=== PATIENT | female | born 1980 | race Hispanic/Latino ===

== ENCOUNTER 2016-04-06 02:35 | Emergency (ER) | payer OTHER, SELFPAY ==
[2016-04-06] MEDS ORDERED: Famotidine/PF 20 mg/2ml Vial ONE (02:51)
[2016-04-06] MEDS ORDERED: Ketorolac Tromethamine 30 MG/ML VIAL ONE (02:51)
[2016-04-06] MEDS ORDERED: Ondansetron HCl/PF 4 MG/2 ML Vial ONE (02:51)
[2016-04-06 03:02] LABS: #Basophils 0.1 thou/uL (0.0-0.2); #Eosinphils 0.6 thou/uL (0.0-0.7); #Lymphocytes 2.6 thou/uL (1.20-3.40); #Monocytes 0.5 thou/uL (0.11-0.59); #Neutrophils 4.5 thou/uL (1.40-6.50); %Basophils 0.6 % (0.0-1.0); %Lymphocytes 31.9 % (21.0-51.0); %Monocytes 5.9 % (0.0-10.0); Hematocrit 48.6 % (36.0-47.0); Mean Platelet Volume 11.4 fL (7.4-10.4); Red Blood Cell (RBC) Count 5.36 mill/uL (4.20-5.40); White Blood Cell (WBC) Count 8.2 thou/uL (4.8-10.8)
[2016-04-06 03:21] LABS: Amylase 151 U/L (25-125); Anion Gap 14 mmol/L (10-20); BUN (Urea Nitrogen) 14 mg/dL (7.0-18.7); Calc. Creatinine Clearance 0 mL/min (70-130); Calcium 9.5 mg/dL (7.8-10.44); Carbon Dioxide 26 mmol/L (22-29); Chloride 102 mmol/L (98-107); Estimated GFR-MDRD 71
[2016-04-06 03:30] LABS: Troponin I Less than 0.010 ng/mL (< 0.028)
[2016-04-06] MEDS ORDERED: Sodium Chloride 0.9% 1,000 ML ONE (03:32)
[2016-04-06 05:00] LABS: Nitrite Negative (Negative)
[2016-04-06 05:01] LABS: Bilirubin Negative (Negative); Blood, Urine Negative (Negative); Glucose, Urine (Dipstick) Negative (Negative); Ketone, Urine Negative (Negative); Protein, Urine (Dipstick) Negative (Neg-Trace); Urobilinogen 0.2 mg/dL (0.2-1.0)
[2016-04-06 05:06] LABS: Bacteria/HPF None Seen HPF (None Seen); RBC/HPF None Seen HPF (0-3); WBC/HPF None Seen HPF (0-3)
--- NOTE | 2016-04-06 06:34 | ERRECORD ---
[facility] EMERGENCY RECORD HPI ABDOMINAL PAIN (02:59 RWAG) CHIEF COMPLAINTS: Patient presents for evaluation of abdominal pain. HISTORIAN: History provided by patient. LOCATION FEMALE: Symptoms are localized, most severe in the right upper quadrant, most severe in the epigastric. QUALITY: Unable to describe the quality of the pain. SEVERITY: Maximum severity of symptoms mild, Currently symptoms are mild, Maximum severity of pain rated as 8/10, Current severity of pain rated as 8/10. TIME COURSE: Patient unable to describe onset of symptoms. ASSOCIATED WITH FEMALE: No associated symptoms. RELIEVED BY: Patient's condition relieved by nothing. EXACERBATED BY: Patient's condition exacerbated by nothing. ROS (03:00 RWAG) CONSTITUTIONAL: Negative constitutional review of systems. EYES: Negative eye review of systems. ENT: Negative ears, nose, throat review of systems. CARDIOVASCULAR: Negative cardiovascular review of systems. RESPIRATORY: Negative respiratory review of systems. GI: Historian reports abdominal pain, reports nausea, reports vomiting. GENITOURINARY FEMALE: Negative genitourinary review of systems. MUSCULOSKELETAL: Negative musculoskeletal review of systems. SKIN: Negative skin review of systems. NEUROLOGIC: Negative neurologic review of systems. ENDOCRINE: Negative endocrine review of systems. HEMO/LYMPHATIC: Normal hematologic/lymphatic system review. ALLERGIC/IMMUNOLOGIC: Normal allergy/immunologic system review. PSYCHIATRIC: Negative psychiatric review of systems. NOTES: All systems reviewed, negative except as described above. PAST MEDICAL HISTORY (03:25 BHAS) MEDICAL HISTORY: Flu vaccine not up to date, Tetanus not up to date, Past medical history includes endocrine disease, hypothyroidism, Past medical history includes hematological history, Anemia. Reviewed 04/06/15. FEMALE SURGICAL HISTORY: Patient has no surgical history. Reviewed 04/06/15. SOCIAL HISTORY: Patient denies alcohol use, Patient denies drug use, Patient has no smoking history. KNOWN ALLERGIES No Known Allergies (Unconfirmed) No Known Drug Allergies CURRENT MEDICATIONS (03:29 BHAS) None &a-1R&a+25V*p+0X*p3450C*c202B*c15G*c2P*p-0X&a-25V&a+1R Name: Alessia Wang : 1980 F36 MedRec: [id number] AcctNum: [id number] Prepared: Kristin Apr 06, 2016 06:38 by Interface Page 1 of 3 pMD [facility] EMERGENCY RECORD VITAL SIGNS VITAL SIGNS: Resp: 18, Pain: 8, Time: 04/06/2016 02:39. (02:39 BHAS) BP: 123/74, Pulse: 66, Temp: 97.6 (Oral), O2 sat: 99 on Room Air, Time: 04/06/2016 02:40. (02:40 BHAS) BP: 94/51, Pulse: 47, Resp: 18 (Non-Labored), O2 sat: 97 on Room Air, Time: 04/06/2016 03:35. (03:35 BHAS) BP: 122/67, Pulse: 57, Resp: 18 (Non-Labored), Pain: 2, O2 sat: 98 on Room Air, Time: 04/06/2016 04:55. (04:55 BHAS) BP: 109/68, Pulse: 63, Resp: 18 (Non-Labored), Temp: 98.1 (Oral), Pain: 0, O2 sat: 99 on Room Air, Time: 04/06/2016 06:00. (06:00 BHAS) PHYSICAL EXAM (03:00 RWAG) CONSTITUTIONAL: Vital Signs Reviewed. HEAD: Head exam normal. EYES: Eye exam normal. ENT: ENT exam normal. NECK: Neck exam normal. RESPIRATORY CHEST: Respiratory and chest exam normal. CARDIOVASCULAR: Cardiovascular assessment normal. ABDOMEN FEMALE: Abdominal exam included findings of abdomen tender, to the right upper quadrant, mild intensity, Bowel sounds normal. BACK: Back exam normal. UPPER EXTREMITY: Upper extremity exam normal. LOWER EXTREMITY: Lower extremity exam normal. NEURO: Neuro exam normal. SKIN: Skin exam normal. LYMPHATIC: Lymphatic exam normal. PSYCHIATRIC: Psychiatric exam normal. EKG INTERPRETATION (03:01 RWAG) 12 LEAD EKG INTERPRETATION: 12 lead EKG interpreted by Emergency Department Physician at time of study, 12 lead EKG shows normal sinus rhythm, Rate (beats per minute): 58, No previous EKG available for comparison, T waves, inverted, Leads affected: V2, Leads affected: V3, [place] normal, Clinical impression: Normal EKG. RADIOLOGYINTERPRETATION (06:02 RWAG) ABDOMEN: Abdomen/pelvis CT scan, with contrast negative, no abdominal aortic aneurysm, no appendicitis, no diverticulitis, no kidney stones, no injuries, no mass, no obstruction, no free air, no hydronephrosis. MEDICATION ADMINISTRATION SUMMARY Drug Name: *sodium chloride 0.9 % intravenous, Dose Ordered: 1000 mL, Route: IV Fluid Infusion, Status: Given, Time: 03:40 04/06/2016, &a-1R&a+25V*p+0X*o3985C*c202B*c15G*c2P*p-0X&a-25V&a+1R Name: Alessia Wang : 1980 F36 MedRec: [id number] AcctNum: [id number] Prepared: Kristin Apr 06, 2016 06:38 by Interface Page 2 of 3 pMD [facility] EMERGENCY RECORD Drug Name: Dilaudid (PF), Dose Ordered: 1 mg, Route: IV Push, Status: Given, Time: 03:10 04/06/2016, Drug Name: famotidine (PF), Dose Ordered: 20 mg, Route: IV Push, Status: Given, Time: 03:05 04/06/2016, Drug Name: ketorolac injection, Dose Ordered: 30 mg, Route: IV Push, Status: Given, Time: 03:04 04/06/2016, Drug Name: ondansetron HCl intravenous, Dose Ordered: 8 mg, Route: IV Push, Status: Given, Time: 02:55 04/06/2016, *Additional information available in notes, Detailed record available in Medication Service section. PROBLEM LIST No recorded problems DIAGNOSIS (06:07 ) FINAL: PRIMARY: GERD WITH ESOPHAGITIS. PRESCRIPTION Ultram: TABLET : 50 mg : ORAL : Quantity: 2 Unit: tab(s) Route: ORAL Schedule: every 6 hours PRN Dispense: 20 Unit: tab(s) May substitute. Refills: No Refills . (06:05 RW) NOTES: No Refills. (06:05 ) Pepcid AC: TABLET : 20 mg : ORAL : Quantity: 1 Unit: tab(s) Route: ORAL Schedule: once a day (in the morning) Dispense: 30 Unit: tab(s) May substitute. Refills: No Refills . (06:06 [facility]) NOTES: No Refills. (06:06 [facility]) Zofran ODT: TABLET,DISINTEGRATING : 8 mg : ORAL : Quantity: 1 Unit: tab(s) Route: ORAL Schedule: every 8 hours PRN Dispense: 10 Unit: tab(s) May substitute. Refills: No Refills . (06:07 [facility]) NOTES: No Refills. (06: [facility]) DISPOSITION PATIENT: Disposition Type: Discharge, Disposition: *Discharge Home, Disposition Transport: Car, Condition: Improved. (06: [facility]) Patient left the department. (06:29 [facility]) [place]: TRIP=JAIR Perales, Tamie RWAG=MD David, Howard &a-1R&a+25V*p+0X*m2472A*c202B*c15G*c2P*p-0X&a-25V&a+1R Name: Alessia Wang : 1980 F36 MedRec: [id number] AcctNum: [id number] Prepared: Kristin Apr 06, 2016 06:38 by Interface Page 3 of 3 pMD MTDD
--- NOTE | 2016-04-06 06:39 | PICIS ---
[facility] EMERGENCY RECORD TRIAGE (ThuApr 06, 2016 02:42 BHAS) TRIAGE NOTES: Pt c/o abd pain with N/V since 8pm last night. (ThuApr 06, 2016 02:42 BHAS) PATIENT: NAME: Alessia Wang, AGE: 36, GENDER: female, : [facility] 1980, TIME OF GREET: ThuApr 06, 2016 02:36, PREFERRED LANGUAGE: Tajik, ETHNICITY: or , ECODE BILLING MAP: [facility] ER, SSN: [id number], Zip Code: [address], KG WEIGHT: 83.46, PHONE: , , , PERSON ID: [id number], PCP: Vida KHAN ELIZABETH. (ThuApr 06, 2016 02:42 BHAS) COMPLAINT: ABD PAIN. (ThuApr 06, 2016 02:42 BHAS) ADMISSION: URGENCY: 3 Urgent, ADMISSION SOURCE: Home, TRANSPORT: Walk-in, BED: ER -04. (ThuApr 06, 2016 02:42 BHAS) ASSESSMENT: Assessment: Pt c/o abd pain with N/V since last night. No acute distress noted., Symptoms began 04/05/2016 03:24, Symptoms began 8 hours ago. (03:25 BHAS) PAIN: Patient complains of pain described as, aching, on a scale 0-10 patient rates pain as 9, Location Epigastric. (03:25 BHAS) TRIAGE SCREENING: Patient denies suicidal ideation, Patient denies presence of domestic violence. (03:25 BHAS) PROVIDERS: TRIAGE NURSE: Tamie Perales RN. (ThuApr 06, 2016 02:42 BHAS) VITAL SIGNS: Resp 18, Pain 8, Time 04/06/2016 02:39. (02:39 BHAS) PREVIOUS VISIT ALLERGIES: No Known Drug Allergies. (ThuApr 06, 2016 02:42 BHAS) No Known Drug Allergies. (03:25 BHAS) KNOWN ALLERGIES No Known Allergies (Unconfirmed) No Known Drug Allergies CURRENT MEDICATIONS (03:29 BHAS) None VITAL SIGNS VITAL SIGNS: Resp: 18, Pain: 8, Time: 04/06/2016 02:39. (02:39 BHAS) BP: 123/74, Pulse: 66, Temp: 97.6 (Oral), O2 sat: 99 on Room Air, Time: 04/06/2016 02:40. (02:40 BHAS) BP: 94/51, Pulse: 47, Resp: 18 (Non-Labored), O2 sat: 97 on Room Air, Time: 04/06/2016 03:35. (03:35 BHAS) BP: 122/67, Pulse: 57, Resp: 18 (Non-Labored), Pain: 2, O2 sat: 98 on Room Air, Time: 04/06/2016 04:55. (04:55 BHAS) BP: 109/68, Pulse: 63, Resp: 18 (Non-Labored), Temp: 98.1 (Oral), Pain: 0, O2 sat: 99 on Room Air, Time: 04/06/2016 06:00. (06:00 BHAS) NURSING ASSESSMENT: ABDOMEN (02:42 BHAS) CONSTITUTIONAL: Patient arrives ambulatory, Gait steady, History obtained from patient, Patient appears, in distress due to &a-1R&a+25V*p+0X*[id number]*c202B*c15G*c2P*p-0X&a-25V&a+1R Name: Alessia Wang : 1980 F36 MedRec: [id number] AcctNum: [id number] Prepared: Kristin Apr 06, 2016 06:43 by Interface Page 1 of 11 pMD [facility] EMERGENCY RECORD pain, Patient cooperative, Patient alert, Oriented to person, place and time, Skin warm, Skin dry, Skin normal in color, Mucous membranes pink, Mucous membranes moist, Patient is well-groomed, Patient complains of Abd pain; N/V, Pt c/o epigastric pain that started approx. 8pm last night; states pain worsened this AM and had woken her up. Pt also c/o N/V; vomited 3 times since last night. Denies SOB; diarrhea. Family at bedside. PAIN: aching pain, to the epigastric region, Onset of pain 04/05/2016 03:27, on a scale 0-10 patient rates pain as 8. ABDOMEN: Abdomen assessment findings include abdomen symmetrical, Abdomen soft, tender, to the right upper quadrant, no pulsatile mass, Bowel sound normal, Associated with nausea, Associated with vomiting, currently, Number of times: 3, no associated diarrhea, no associated constipation, no associated weight change, no associated foreign travel. GENITOURINARY FEMALE: Female genitourinary assessment findings include external genitalia normal. SAFETY: Side rails up, Cart/Stretcher in lowest position, Family at bedside, Call light within reach, Hospital ID band on. NURSING PROCEDURE: DISCHARGE NOTE (06:18 BHAS) DISCHARGE: Patient discharged to home, ambulating without assistance, family driving, accompanied by //partner, Summary of Care printed/ provided, Transition record given to patient, Discharge instructions given to patient, Simple or moderate discharge teaching performed, by JAIR Willett, Prescriptions given and instructions on side effects given, Above person(s) verbalized understanding of discharge instructions and follow-up care, Patient discharged by, JAIR Willett, Patient treated and evaluated by physician. BELONGINGS: Belongings and valuables with patient upon arrival to the Emergency Department include:, Belongings and valuables with patient at time of discharge include:, Belongings remain with patient, Valuables remain with patient. SAFETY: Side rails up, Cart/Stretcher in lowest position, Family at bedside, Call light within reach, Hospital ID band on. NURSING PROCEDURE: EKG CHART (02:48 BHAS) PATIENT IDENTIFIER: Patient actively involved in identification process, Patient's identity verified by patient stating name, Patient's identity verified by hospital ID bracelet. EKG: EKG indicated for epigastric pain, 12 lead EKG performed on the left chest, done by JAIR Toribio. FOLLOW-UP: After procedure, EKG for interpretation given to Dr. Hernandez. SAFETY: Side rails up, Cart/Stretcher in lowest position, Family at bedside, Call light within reach, Hospital ID band on. &a-1R&a+25V*p+0X*a2632O*c202B*c15G*c2P*p-0X&a-25V&a+1R Name: Alessia Wang : 1980 F36 MedRec: [id number] AcctNum: [id number] Prepared: Kristin Apr 06, 2016 06:43 by Interface Page [address] [facility] EMERGENCY RECORD NURSING PROCEDURE: IV PATIENT IDENITIFIER: Patient actively involved in identification process, Patient's identity verified by patient stating name, Patient's identity verified by hospital ID bracelet. (02:55 BHAS) Patient actively involved in identification process, Patient's identity verified by patient stating name, Patient's identity verified by hospital ID bracelet. (06:15 BHAS) IV SITE 1: IV therapy indicated for hydration, IV therapy indicated for medication administration, IV established, to the left antecubital, using a 20 gauge catheter, in one attempt, Saline lock established, Flushed with normal saline (mls): 10, Labs drawn at time of placement, labeled in the presence of the patient and sent to lab. (02:55 BHAS) FOLLOW-UP SITE 1: After procedure, sterile dressing applied. (02:55 BHAS) After procedure, 2x2 dressing applied, IV discontinued, due to patient being discharged, catheter intact. (06:15 BHAS) SAFETY: Side rails up, Cart/Stretcher in lowest position, Family at bedside, Call light within reach, Hospital ID band on. (02:55 BHAS) Side rails up, Cart/Stretcher in lowest position, Family at bedside, Call light within reach, Hospital ID band on. (06:15 BHAS) NURSING PROCEDURE: NURSE NOTES NURSES NOTES: Notes: Pt's BP decreasing at this time post dilaudid administration; Dr. Hernandez notified. Verbalized to give 1L NS bolus. (03:32 BHAS) Notes: Pt ambulates to restroom without assistance; steady gait. Given urine cup for UA. (04:50 BHAS) Notes: Pt to CT via cart at this time. (04:56 BHAS) NURSING PROCEDURE: URINE COLLECTION (04:55 BHAS) PATIENT IDENTIFIER: Patient actively involved in identification process, Patient's identity verified by patient stating name, Patient's identity verified by hospital ID bracelet. URINE COLLECTION FEMALE: Urine collected by mid-stream clean catch, Output amount (mL) 40, urine radha in color, and clear, Specimen labeled in the presence of the patient and sent to lab. SAFETY: Side rails up, Cart/Stretcher in lowest position, Family at bedside, Call light within reach, Hospital ID band on. ORDER DETAILS Order Name: Amylase, Status: Active, Time: 02:45 04/06/2016, User: ADDI, - Ordered for: MD Hernandez Richard, - Entered by: MD Hernandez Richard - Sun Apr 06, 2016 02:45, - Quantity: 1, Order Name: Basic Metabolic Panel, Status: Active, Time: 02:45 &a-1R&a+25V*p+0X*b5626J*c202B*c15G*c2P*p-0X&a-25V&a+1R Name: Alessia Wang : 1980 F36 MedRec: [id number] AcctNum: [id number] Prepared: ThuApr 06, 2016 06:43 by Interface Page [address] [facility] EMERGENCY RECORD 04/06/2016, User: ADDI, - Ordered for: MD Hernandez Richard, - Entered by: MD Hernandez Richard - Sun Apr 06, 2016 02:45, - Quantity: 1, Order Name: Cardiac Profile w/CKMB & Troponin - I, Status: Active, Time: 02:57 04/06/2016, User: ADDI, - Ordered for: MD Hernandez Richard, - Entered by: MD Hernandez Richard - Sun Apr 06, 2016 02:57, - Quantity: 1, Order Name: CBC with Differential, Status: Active, Time: 02:45 04/06/2016, User: ADDI, - Ordered for: MD Hernandez Richard, - Entered by: MD Hernandez Richard - Sun Apr 06, 2016 02:45, - Quantity: 1, Order Name: CT Abdomen Pelvis W Con, Status: Active, Time: 02:59 04/06/2016, User: ADDI, - Ordered for: MD Hernandez Richard, - Entered by: MD Hernandez Richard - Sun Apr 06, 2016 02:59, - Quantity: 1, Order Name: EKG 12 Lead in Emergency Room, Status: Active, Time: 02:57 04/06/2016, User: ADDI, - Ordered for: MD Hernandez Richard, - Entered by: MD Hernandez Richard - Sun Apr 06, 2016 02:57, - Quantity: 1, Order Name: Test, Urine (BHCG), Status: Active, Time: 02:45 04/06/2016, User: [facility], - Ordered for: MD Hernandez Richard, - Entered by: MD Hernandez Richard - Gallagher Apr 06, 2016 02:45, - Quantity: 1, Order Name: SALINE LOCK, Status: Done, Time: 03:03 04/06/2016, User: [employer], - Ordered for: MD Hernandez Richard, - Entered by: MD Hernandez Richard - Kristin Apr 06, 2016 02:45, - Quantity: 1, Order Name: Urinalysis with Microscopic, Status: Active, Time: 02:45 04/06/2016, User: [facility], - Ordered for: MD Hernandez Richard, - Entered by: MD Hernandez Richard - Kristin Apr 06, 2016 02:45, - Quantity: 1. MEDICATION ADMINISTRATION SUMMARY Drug Name: *sodium chloride 0.9 % intravenous, Dose Ordered: 1000 mL, Route: IV Fluid Infusion, Status: Given, Time: 03:40 04/06/2016, Drug Name: Dilaudid (PF), Dose Ordered: 1 mg, Route: IV Push, Status: Given, Time: 03:10 04/06/2016, Drug Name: famotidine (PF), Dose Ordered: 20 mg, Route: IV Push, Status: Given, Time: 03:05 04/06/2016, Drug Name: ketorolac injection, Dose Ordered: 30 mg, Route: IV Push, Status: Given, Time: 03:04 04/06/2016, &a-1R&a+25V*p+0X*p5715C*c202B*c15G*c2P*p-0X&a-25V&a+1R Name: Alessia Wang : 1980 F36 MedRec: [id number] AcctNum: [id number] Prepared: Kristin Apr 06, 2016 06:43 by Interface Page 4 of 11 pMD [facility] EMERGENCY RECORD Drug Name: ondansetron HCl intravenous, Dose Ordered: 8 mg, Route: IV Push, Status: Given, Time: 02:55 04/06/2016, *Additional information available in notes, Detailed record available in Medication Service section. MEDICATION SERVICE Dilaudid (PF): Order: Dilaudid (PF) (hydromorphone HCl/preservative free) - Dose: 1 mg : IV Push Schedule: Now Ordered by: Howard Hernandez MD Entered by: Howard Hernandez MD Gallagher Apr 06, 2016 02:58 Documented as given by: Tamie Perales RN Gallagher Apr 06, 2016 03:10 Patient, Medication, Dose, Route and Time verified prior to administration. Amount given: 1mg, IV SITE #1 IVP, initial medication, Slowly, Awake and alert- acceptable, Catheter placement confirmed via flush prior to administration, IV site without signs or symptoms of infiltration during medication administration, No swelling during administration, No drainage during administration, IV flushed after administration, Correct patient, time, route, dose and medication confirmed prior to administration, Patient advised of actions and side-effects prior to administration, Allergies confirmed and medications reviewed prior to administration, Patient tolerated procedure well, Patient in position of comfort, Side rails up, Cart in lowest position, Family at bedside. famotidine (PF): Order: famotidine (PF) (famotidine/preservative free) - Dose: 20 mg : IV Push Schedule: Now Ordered by: Howard Hernandez MD Entered by: Howard Hernandez MD Gallagher Apr 06, 2016 02:46 Documented as given by: Cherie Martin RN Gallagher Apr 06, 2016 03:05 Patient, Medication, Dose, Route and Time verified prior to administration. IV SITE #1 IVP, subsequent different medication, Slowly, Awake and alert- acceptable, Catheter placement confirmed via flush prior to administration, IV site without signs or symptoms of infiltration during medication administration, No swelling during administration, No drainage during administration, IV flushed after administration, Correct patient, time, route, dose and medication confirmed prior to administration, Patient advised of actions and side-effects prior to administration, Allergies confirmed and medications reviewed prior to administration, Patient in position of comfort, Side rails up, Cart in lowest position, Family at bedside. ketorolac injection: Order: ketorolac injection (ketorolac tromethamine) - Dose: 30 mg : IV Push Schedule: Now Ordered by: Howard Hernandez MD Entered by: MD Kristin Nuno Apr 06, 2016 02:47 Documented as given by: JAIR Lunsford Apr 06, 2016 03:04 Patient, Medication, Dose, Route and Time verified prior to &a-1R&a+25V*p+0X*a2774F*c202B*c15G*c2P*p-0X&a-25V&a+1R Name: Alessia Wang : 1980 F36 MedRec: [id number] AcctNum: [id number] Prepared: Kristin Apr 06, 2016 06:43 by Interface Page 5 of 11 D [facility] EMERGENCY RECORD administration. IV SITE #1 IVP, subsequent different medication, Slowly, Awake and alert- acceptable, Catheter placement confirmed via flush prior to administration, IV site without signs or symptoms of infiltration during medication administration, No swelling during administration, No drainage during administration, IV flushed after administration, Correct patient, time, route, dose and medication confirmed prior to administration, Patient advised of actions and side-effects prior to administration, Allergies confirmed and medications reviewed prior to administration, Patient in position of comfort, Side rails up, Cart in lowest position, Family at bedside. ondansetron HCl intravenous: Order: ondansetron HCl intravenous (ondansetron HCl) - Dose: 8 mg : IV Push Schedule: Now Ordered by: Howard Hernandez MD Entered by: MD Kristin Nuno Apr 06, 2016 02:46 Documented as given by: JAIR Lunsford Apr 06, 2016 02:55 Patient, Medication, Dose, Route and Time verified prior to administration. IV SITE #1 IVP, initial medication, Slowly, Awake and alert- acceptable, Catheter placement confirmed via flush prior to administration, IV site without signs or symptoms of infiltration during medication administration, No swelling during administration, No drainage during administration, IV flushed after administration, Correct patient, time, route, dose and medication confirmed prior to administration, Patient advised of actions and side-effects prior to administration, Allergies confirmed and medications reviewed prior to administration, Patient in position of comfort, Side rails up, Cart in lowest position, Family at bedside. sodium chloride 0.9 % intravenous: Order: sodium chloride 0.9 % intravenous (0.9 % sodium chloride) - Dose: 1000 mL : IV Fluid Infusion Schedule: Bolus Notes: Read back and verified, Verbal Order Ordered by: Howard Hernandez MD Entered by: JAIR Erwin Apr 06, 2016 06:20 Documented as given by: Tamie Perales RN Gallagher Apr 06, 2016 03:40 Patient, Medication, Dose, Route and Time verified prior to administration. Amount given: 1000ml, IV SITE #1 IV fluids established for hydration, IV SITE #1 1st bag hung, amount 1 Liter hung, via primary tubing, via gravity tubing, Connections checked prior to administration, Line traced prior to administration, Catheter placement confirmed via flush prior to administration, IV site without signs or symptoms of infiltration during medication administration, No swelling during administration, No drainage during administration, IV flushed after administration, Correct patient, time, route, dose and medication confirmed prior to administration, Patient advised of actions and side-effects prior to administration, Allergies confirmed and medications reviewed prior to administration, &a-1R&a+25V*p+0X*x3166G*c202B*c15G*c2P*p-0X&a-25V&a+1R Name: Alessia Wang : 1980 F36 MedRec: [id number] AcctNum: [id number] Prepared: Gallagher Apr 06, 2016 06:43 by Interface Page 6 of 11 pMD [facility] EMERGENCY RECORD Patient tolerated procedure well, Patient in position of comfort, Side rails up, Cart in lowest position, Family at bedside. : Follow Up : _IV SITE #1:_, IV fluid infusion discontinued, on Gallagher Apr 06, 2016 04:45, Total fluid hydration time IV site 1 1 hour, 5 minutes, ., Total amount infused: 1000ml, IV Line flushed after administration. (04:45 [facility]) HPI ABDOMINAL PAIN (02:59 [facility]) CHIEF COMPLAINTS: Patient presents for evaluation of abdominal pain. HISTORIAN: History provided by patient. LOCATION FEMALE: Symptoms are localized, most severe in the right upper quadrant, most severe in the epigastric. QUALITY: Unable to describe the quality of the pain. SEVERITY: Maximum severity of symptoms mild, Currently symptoms are mild, Maximum severity of pain rated as 8/10, Current severity of pain rated as 8/10. TIME COURSE: Patient unable to describe onset of symptoms. ASSOCIATED WITH FEMALE: No associated symptoms. RELIEVED BY: Patient's condition relieved by nothing. EXACERBATED BY: Patient's condition exacerbated by nothing. ROS (03:00 [facility]) CONSTITUTIONAL: Negative constitutional review of systems. EYES: Negative eye review of systems. ENT: Negative ears, nose, throat review of systems. CARDIOVASCULAR: Negative cardiovascular review of systems. RESPIRATORY: Negative respiratory review of systems. GI: Historian reports abdominal pain, reports nausea, reports vomiting. GENITOURINARY FEMALE: Negative genitourinary review of systems. MUSCULOSKELETAL: Negative musculoskeletal review of systems. SKIN: Negative skin review of systems. NEUROLOGIC: Negative neurologic review of systems. ENDOCRINE: Negative endocrine review of systems. HEMO/LYMPHATIC: Normal hematologic/lymphatic system review. ALLERGIC/IMMUNOLOGIC: Normal allergy/immunologic system review. PSYCHIATRIC: Negative psychiatric review of systems. NOTES: All systems reviewed, negative except as described above. PAST MEDICAL HISTORY (03:25 BHAS) MEDICAL HISTORY: Flu vaccine not up to date, Tetanus not up to date, Past medical history includes endocrine disease, hypothyroidism, Past medical history includes hematological history, Anemia. Reviewed 04/06/15. FEMALE SURGICAL HISTORY: Patient has no surgical history. Reviewed 04/06/15. SOCIAL HISTORY: Patient denies alcohol use, Patient denies drug use, Patient has no smoking history. &a-1R&a+25V*p+0X*z8887K*c202B*c15G*c2P*p-0X&a-25V&a+1R Name: Alessia Wang : 1980 F36 MedRec: [id number] AcctNum: [id number] Prepared: Kristin Apr 06, 2016 06:43 by Interface Page 7 of 11 pMD [facility] EMERGENCY RECORD PHYSICAL EXAM (03:00 [facility]) CONSTITUTIONAL: Vital Signs Reviewed. HEAD: Head exam normal. EYES: Eye exam normal. ENT: ENT exam normal. NECK: Neck exam normal. RESPIRATORY CHEST: Respiratory and chest exam normal. CARDIOVASCULAR: Cardiovascular assessment normal. ABDOMEN FEMALE: Abdominal exam included findings of abdomen tender, to the right upper quadrant, mild intensity, Bowel sounds normal. BACK: Back exam normal. UPPER EXTREMITY: Upper extremity exam normal. LOWER EXTREMITY: Lower extremity exam normal. NEURO: Neuro exam normal. SKIN: Skin exam normal. LYMPHATIC: Lymphatic exam normal. PSYCHIATRIC: Psychiatric exam normal. EVENTS TRANSFER: Triage to Emergency Emergency Room -04. (Kristin Apr 06, 2016 02:42 BHAS) Removed from Emergency Emergency Room -04. (06:29 BHAS) RADIOLOGYINTERPRETATION (06:02 RW) ABDOMEN: Abdomen/pelvis CT scan, with contrast negative, no abdominal aortic aneurysm, no appendicitis, no diverticulitis, no kidney stones, no injuries, no mass, no obstruction, no free air, no hydronephrosis. EKG INTERPRETATION (03:01 RW) 12 LEAD EKG INTERPRETATION: 12 lead EKG interpreted by Emergency Department Physician at time of study, 12 lead EKG shows normal sinus rhythm, Rate (beats per minute): 58, No previous EKG available for comparison, T waves, inverted, Leads affected: V2, Leads affected: V3, [place] normal, Clinical impression: Normal EKG. PROBLEM LIST No recorded problems DIAGNOSIS (06:07 RW) FINAL: PRIMARY: GERD WITH ESOPHAGITIS. DISPOSITION PATIENT: Disposition Type: Discharge, Disposition: *Discharge Home, Disposition Transport: Car, Condition: Improved. (06:07 RW) Patient left the department. (06:29 [facility]) &a-1R&a+25V*p+0X*a3937V*c202B*c15G*c2P*p-0X&a-25V&a+1R Name: Alessia Wang : 1980 F36 MedRec: [id number] AcctNum: [id number] Prepared: Kristin Apr 06, 2016 06:43 by Interface Page 8 of 11 D [facility] EMERGENCY RECORD INSTRUCTION (06:08 RW) DISCHARGE: GERD ADULT. FOLLOWUP: [facility]HAN, [facility] [address] [place] [address] Dr. Garcia, [address], [facility] [address], , Follow up with Primary Care Physician in 2-3 days. SPECIAL: Follow-up with your PCP. PRESCRIPTION Ultram: TABLET : 50 mg : ORAL : Quantity: 2 Unit: tab(s) Route: ORAL Schedule: every 6 hours PRN Dispense: 20 Unit: tab(s) May substitute. Refills: No Refills . (06:05 RW) NOTES: No Refills. (06:05 RWAG) Pepcid AC: TABLET : 20 mg : ORAL : Quantity: 1 Unit: tab(s) Route: ORAL Schedule: once a day (in the morning) Dispense: 30 Unit: tab(s) May substitute. Refills: No Refills . (06:06 [facility]) NOTES: No Refills. (06:06 [facility]) Zofran ODT: TABLET,DISINTEGRATING : 8 mg : ORAL : Quantity: 1 Unit: tab(s) Route: ORAL Schedule: every 8 hours PRN Dispense: 10 Unit: tab(s) May substitute. Refills: No Refills . (06:07 [facility]) NOTES: No Refills. (06:07 [facility]) IMAGING *SUPPLY CHARGE SHEET: Image captured from scanner. (06:26 [facility]) *EKG: Image captured from scanner. (06:27 [facility]) XRAY REPORT - PRELIMINARY VRC: Image captured from scanner. (06:27 [facility]) Page 2 added. Image captured from scanner. (06:27 [facility]) *DISCHARGE INSTRUCTIONS RECEIPT: Image captured from scanner. (06:28 [facility]) Page 2 added. Image captured from scanner. (06:28 [facility]) ADMIN (06:31 [facility]) DIGITAL SIGNATURE: MD Hernandez Richard. RESULTS (06:03 [facility]) LABORATORY: Urinalysis with Microscopic Collection DT: Kristin Apr 06, 2016 04:57, Color Yellow , Range (Yellow), Clarity Clear , Range (Clear), Specific Shiro, Urine 1.035 , Range (1.002-1.036), pH, Urine 5.5 , Range (5.0-9.0), Leukocyte Negative , Range (Negative), Nitrite Negative , Range (Negative), Protein, Urine (Dipstick) Negative mg/dL, Range (Neg-Trace), Glucose, Urine (Dipstick) Negative mg/dL, Range (Negative), Ketone, Urine Negative mg/dL, Range (Negative), Urobilinogen 0.2 mg/dL, Range (0.2-1.0), &a-1R&a+25V*p+0X*y7185W*c202B*c15G*c2P*p-0X&a-25V&a+1R Name: Alessia Wang : 1980 F36 MedRec: [id number] AcctNum: [id number] Prepared: Kristin Apr 06, 2016 06:43 by Interface Page 9 of 11 pMD [facility] EMERGENCY RECORD Bilirubin Negative , Range (Negative), Blood, Urine Negative , Range (Negative), RBC/HPF None Seen HPF, Range (0-3), WBC/HPF None Seen HPF, Range (0-3), *Squamous Epithelial 4-6 - H HPF, Range (0-3), Bacteria/HPF None Seen HPF, Range (None Seen). Test, Urine (BHCG) Collection DT: Gallagher Apr 06, 2016 04:57, Test - Urine (BHCG) NEGATIVE , Range (NEGATIVE), Method of sensitivity- Indeterminant: results should be repeated, after 48 hours. Positive: results may be detected as early as 4-5 days before a first missed menses. Elimination of BHCG-, Elimination following first trimester D&C: 29-44 Days , Elimination following term : 8-24 Days , Specific Shiro 1.035 , Range (1.002-1.036), A dilute urine specimen may, not contain event sales representative levels of hCG. If is still, suspected, a first morning urine specimen OR a random blood specimen should, be obtained from the patient 48-72 hours later and re-tested. , . Cardiac Profile w/CKMB & TropI Collection DT: Gallagher Apr 06, 2016 03:01, CKMB 1.7 ng/mL, Range (0-6.6), Troponin I Less than 0.010 ng/mL, Range (< 0.028), Reference Range , 0.00 - 0.028 ng/mL Negative 0.029 - 0.29 ng/mL , Indeterminate Greater or Equal to 0.3 ng/mL Strongly suggests [place] , . Amylase Collection DT: Gallagher Apr 06, 2016 03:01, *Amylase 151 - H U/L, Range (25-125). Basic Metabolic Panel Collection DT: Gallagher Apr 06, 2016 03:01, Sodium 138 mmol/L, Range (136-145), Potassium 3.9 mmol/L, Range (3.5-5.1), Chloride 102 mmol/L, Range (98-107), Carbon Dioxide 26 mmol/L, Range (22-29), Anion Gap 14 mmol/L, Range (10-20), BUN (Urea Nitrogen) 14 mg/dL, Range (7.0-18.7), Creatinine 0.90 mg/dL, Range (0.6-1.1), Estimated GFR-MDRD 71 , Reference Range for Estimated GFR: Greater than 90, mL/min/1.73 m2 NOTE: &a-1R&a+25V*p+0X*j7940L*c202B*c15G*c2P*p-0X&a-25V&a+1R Name: Alessia Wang : 1980 F36 MedRec: [id number] AcctNum: [id number] Prepared: ThuApr 06, 2016 06:43 by Interface Page 10 of 11 D [facility] EMERGENCY RECORD The MDRD equation has not been validated for use, with the elderly (over 70 years of age), women, patients with, serious comorbid condition or persons with extremes of body size, muscle, mass, or nutritional status. , *Glucose 110 - H mg/dL, Range (70-105), Calcium 9.5 mg/dL, Range (7.8-10.44). CBC with Differential Collection DT: Gallagher Apr 06, 2016 03:01, White Blood Cell (WBC) Count 8.2 thou/uL, Range (4.8-10.8), Red Blood Cell (RBC) Count 5.36 mill/uL, Range (4.20-5.40), Hemoglobin 15.7 g/dL, Range (12.0-16.0), *Hematocrit 48.6 - H %, Range (36.0-47.0), Mean Corpuscular Volume 90.7 fl, Range (81.0-99.0), Mean Corpuscular Hemoglobin 29.3 pg, Range (27.0-31.0), Mean Corpuscular HGB CONC 32.3 g/dL, Range (32.0-36.0), RBC Distribution Width 11.8 %, Range (11.5-14.5), Platelet Count 268 thou/uL, Range (130-400), *Mean Platelet Volume 11.4 - H fL, Range (7.4-10.4), %Neutrophils 54.6 %, Range (42.0-75.0), %Lymphocytes 31.9 %, Range (21.0-51.0), %Monocytes 5.9 %, Range (0.0-10.0), %Eosinophils 7.0 %, Range (0.0-10.0), %Basophils 0.6 %, Range (0.0-1.0), #Neutrophils 4.5 thou/uL, Range (1.40-6.50), #Lymphocytes 2.6 thou/uL, Range (1.20-3.40), #Monocytes 0.5 thou/uL, Range (0.11-0.59), #Eosinphils 0.6 thou/uL, Range (0.0-0.7), #Basophils 0.1 thou/uL, Range (0.0-0.2). [place]: BHAS=JAIR Perales, Tamie RWAG=MD David, Howard &a-1R&a+25V*p+0X*g2571M*c202B*c15G*c2P*p-0X&a-25V&a+1R Name: Alessia Wang : 1980 F36 MedRec: [id number] AcctNum: [id number] Prepared: Kristin Apr 06, 2016 06:43 by Interface Page 11 of 11 pMD MTDD
[2016-04-06] MEDS ORDERED: Iopamidol 370 76% 100 ML VIAL ONE (09:00)
--- NOTE | 2016-04-06 14:21 | CT ---
PRELIMINARY REPORT/[facility]/EMERGENCY AFTER HOURS PROCEDURE: \H\EXAM: \N\CT Abdomen and Pelvis With Intravenous Contrast. \H\CLINICAL HISTORY: \N\36 years old, female; Pain; Abdominal pain; Epigastric; Patient HX: Pt states pain to epigastric area sinc 8pm last night, ate spicy chips. ; \H\ TECHNIQUE: \N\Axial computed tomography images of the abdomen and pelvis with intravenous contrast. Coronal and sagittal reformatted images were created and reviewed. \H\COMPARISON: \N\No relevant prior studies available. \H\ FINDINGS: \N\Lower thorax: A nodule measuring 4 mm is seen in the left lung base. Mild atelectasis is seen in both lung bases. ABDOMEN: Liver: Unremarkable. No mass. Gallbladder and bile ducts: Unremarkable. No calcified stones. No ductal dilation. Pancreas: Unremarkable. No mass. No ductal dilation. Spleen: Unremarkable. No splenomegaly. Adrenals: Unremarkable. No mass. Kidneys and ureters: Unremarkable. No solid mass. No hydronephrosis. Stomach and bowel: Unremarkable. No obstruction. No mucosal thickening. Appendix: No findings to suggest acute appendicitis. Intraperitoneal space: Unremarkable. No free air. No significant fluid collection. PELVIS: Bladder: Unremarkable. No mass. Reproductive: A cyst measuring 3.2 cm is seen in the right ovary. ABDOMEN and PELVIS: Bones: No acute fracture. Soft tissues: Unremarkable. Vasculature: Unremarkable. No abdominal aortic aneurysm. Lymph nodes: Unremarkable. No enlarged lymph nodes. \H\IMPRESSION: \N\1. No acute findings. 2. Right ovarian cyst measuring 3.2 cm. 3. Nodule measuring 4 mm in the left lung base. A followup is recommended in 12 months if the patien t is high risk. Thank you for allowing us to participate in the care of your patient. Dictated and Authenticated by: Jessi Roman MD 04/06/2016 5:52 AM Central Time ([place] \T\ [place]) FINAL REPORT EXAM: ABDOMEN WITH CONTRAST PELVIC CT WITH CONTRAST: HISTORY: Nausea and vomiting. Abdominal pain. COMPARISON: None. TECHNIQUE: Abdomen and pelvic CT is performed with IV contrast. Coronal reformatted images are submitted for i nterpretation. FINDINGS: This report is in agreement with the preliminary report by [facility]. There is no acute abnormality in th e abdomen or pelvis. Bilateral ovarian cysts are suspected. A 4 mm nodule in the left lower lobe. Normal-caliber appendix is present. POS: [facility]
== END 2016-04-06 06:18 | disposition home or self-care (01) ==
LOC: NAV ERS 02:35
DX: K21.0 Gastro-esophageal reflux disease with esophagitis (principal); E03.9 Hypothyroidism, unspecified; D64.9 Anemia, unspecified
CPT/HCPCS: 36415; 74177; 80048; 81001; 81025; 82150; 82553; 84484; 85025; 93005; 96361; 96374; 96375; J1170; J1885; J2405; J7050; S0028

== ENCOUNTER 2016-06-27 11:15 | Outpatient (CLI) | payer OTHER ==
[2016-06-27 12:23] LABS: ALT (SGPT) 45 U/L (0-55); AST (SGOT) 23 U/L (5-34); Albumin 4.3 g/dL (3.5-5.0); Alkaline Phosphatase 73 U/L (40-150); Anion Gap 15 mmol/L (10-20); BUN (Urea Nitrogen) 17 mg/dL (7.0-18.7); Bilirubin, Total 0.4 mg/dL (0.2-1.2); Calc. Creatinine Clearance 0 mL/min (70-130); Calcium 9.1 mg/dL (7.8-10.44); Carbon Dioxide 26 mmol/L (22-29); Chloride 105 mmol/L (98-107); Estimated GFR-MDRD 78; Globulin 3.3 g/dL (2.4-3.5); Glucose 77 mg/dL (70-105); Potassium 5.1 mmol/L (3.5-5.1); Protein, Total 7.6 g/dL (6.0-8.3); Sodium 141 mmol/L (136-145)
[2016-06-27 12:44] LABS: Free T3 2.99 pg/mL (1.71-3.71); Free T4 (Free Thyroxine) 0.94 ng/dL (0.70-1.48); Thyroid Stimulating Hormone 5.2275 uIU/mL (0.35-4.94)
== END 2016-06-27 11:16 | disposition home or self-care (01) ==
LOC: NAV LAB 11:15
DX: E03.9 Hypothyroidism, unspecified (principal); K76.3 Infarction of liver
CPT/HCPCS: 80053; 84439; 84443; 84481

== ENCOUNTER 2016-10-20 01:17 | Emergency (ER) | payer SELFPAY ==
[2016-10-20] MEDS ORDERED: Lidocaine Viscous Sol 2% 15 ml UD Cup ONE (01:43)
[2016-10-20] MEDS ORDERED: Mag-Al Plus 1200 MG/1200 MG/120 MG/30 ML UDCUP ONE (01:44)
[2016-10-20] MEDS ORDERED: Ondansetron ODT 4 MG TAB ONE (01:45)
== END 2016-10-20 02:15 | disposition home or self-care (01) ==
LOC: NAV ERS 01:17
DX: K29.00 Acute gastritis without bleeding (principal); E03.9 Hypothyroidism, unspecified; Z79.899 Other long term (current) drug therapy
CPT/HCPCS: 99283; Q0162